=== PATIENT | female | born 1990 | race Caucasian/White ===

== ENCOUNTER 2023-09-11 14:55 | Emergency (ER) | payer BC ==
[~2023-09-11] VITALS: Ht 172.7 cm; Wt 61.2 kg
[2023-09-11 15:03] VITALS: BP 147/99; TEMP 98
[2023-09-11 15:59] VITALS: O2SAT 97
== END 2023-09-11 16:00 | disposition left against medical advice (07) ==
LOC: ER 14:59
DX: J95.831 Postprocedural hemorrhage of a respiratory system organ or structure following other procedure (principal)